=== PATIENT | female | born 1960 | race Two or more races ===

== ENCOUNTER 2017-12-21 10:58 | Emergency (ER) | payer BC ==
[~2017-12-21] VITALS: Ht 170.2 cm; Wt 79.8 kg
[~2017-12-21 10:58] MED LIST: CALCIUM500 M1 PO; FISH OIL500 M1 PO; FLAXSEED OIL1000 M1 PO; METOPROLOL TART25 MG ORAL; METOPROLOL TART25 MG PO; NEXIUM20 MG ORAL; NEXIUM40 MG PO; VITAMIN D1000 UNI1 PO
[2017-12-21 11:12] VITALS: BP 134/83
[2017-12-21] MEDS ORDERED: TESSALON PERLE100 MG ORAL (11:48)
[2017-12-21 12:25] VITALS: BP 134/83
--- NOTE | 2017-12-21 13:53 | Emergency Room Report ---
History of Present Illness General Chief Complaint: Upper Respiratory Illness Source: Patient, Medical Record Present Illness HPI 57-year-old female with hypertension p/w cough for 2 days. Pt states cough is productive, with clear non bloody sputum. Denies fever chills sob . Denies runny nose or myalgias. +sick contacts no recent travel. Patient does not smoke. Allergies: Coded Allergies: No Known Allergies (Unverified , 07/09/12) Patient History Past Medical History: see triage record Past Surgical History: none Pertinent Family History: none Reviewed Nursing Documentation: PMH: Agreed; PSxH: Agreed Nursing Documentation-PMH Past Medical History: No History, Except For Hx Cardiac Problems: Yes - arrthymia Hx Cancer: No Hx Gastrointestinal Problems: Yes Hx Neurological Problems: No Review of Systems All Other Systems: negative except mentioned in HPI Physical Exam Vital Signs Date Time Temp Pulse Resp B/P (MAP) Pulse Ox O2 Delivery O2 Flow Rate FiO2 12/21/17 11:05 98.3 97 18 134/83 99 Room Air 98.2 Sp02 EP Interpretation: reviewed, normal General Appearance: alert, GCS 15, non-toxic, mild distress Head: normocephalic, atraumatic Eyes: bilateral eye normal inspection, bilateral eye PERRL, bilateral eye EOMI ENT: normal ENT inspection, normal pharynx, normal voice, moist mucus membranes Neck: normal inspection, full range of motion, supple Respiratory: normal inspection, lungs clear, normal breath sounds, no respiratory distress, no retraction, no wheezing, speaking full sentences, chest symmetrical Cardiovascular #1: normal inspection, regular rate, rhythm, no edema, normal capillary refill Cardiovascular #2: 2+ radial (R), 2+ radial (L) Gastrointestinal: normal inspection, non tender, soft, non-distended, no guarding Musculoskeletal: normal inspection, back normal, normal range of motion, non- tender Neurologic: normal inspection, alert, oriented x3, responsive, motor strength/ tone normal, sensory intact, normal gait, speech normal Psychiatric: normal inspection, judgement/insight normal, memory normal Skin: normal inspection, normal color, no rash, warm/dry, well hydrated, normal turgor Medical Decision Making Diagnostic Impression: Primary Impression: Upper respiratory infection ER Course 57-year-old female p/w cough for 2 days. DDX: Viral URI vs. pneumonia Plan: CXR ER course: Patient remains nontoxic, not in resp distress. CXR obtained - no acute infiltrate Disposition: Patient is to be discharged home with a prescription of Betsy Cervantes Strict precautions discussed with patient on when to return to the emergency room including hemoptysis, high fevers, chills, SOB, chest pain which may indicate severe illness. Patient is to follow up with their primary care doctor within 5 days. Patient agrees with plan. Please note that this Emergency Department Report was dictated using [employer].data acquisition technician technology software, occasionally this can lead to erroneous entry secondary to interpretation by the dictation equipment Chest X-ray CXR: Ordered: Yes 1 view Indication: Cough EP interpretation: Yes Interpretation: No consolidation, no effusion, no PTX, no acute cardiopulmonary disease Impression: No acute disease Electronically signed by Consuelo Collins MD Last Vital Signs Date Time Temp Pulse Resp B/P (MAP) Pulse Ox O2 Delivery O2 Flow Rate FiO2 12/21/17 12:25 98.2 18 134/83 99 Room Air 98.2 12/21/17 11:12 97 Disposition: HOME, SELF-CARE Condition: Improved Scripts Benzonatate* (POLOSALON URIEL*) 100 Mg Capsule 100 MG ORAL THREE TIMES A DAY, #21 PERLE Prov: Consuelo Collins M.D. 12/21/17 Referrals: WAQAS OCONNELL (PCP) Patient Instructions: Upper Respiratory Infection, Adult Consuelo Collins M.D. Dec 21, 2017 13:53
--- NOTE | 2017-12-21 15:37 | Diagnostic Imaging Report ---
Indication: Shortness of breath Technique: One view of the chest Comparison: none Findings: Lungs and pleural spaces are clear. Heart size is normal Impression: No acute process
== END 2017-12-21 12:26 | disposition home or self-care (01) ==
LOC: EMR 11:20
DX: J06.9 Acute upper respiratory infection, unspecified (principal); I10 Essential (primary) hypertension
CPT/HCPCS: 71045; 99283

== ENCOUNTER 2018-08-15 05:54 | Day surgery (SDC) | payer BC ==
[~2018-08-15] VITALS: Ht 162.6 cm; Wt 80.7 kg
[2018-08-15] VITALS (9 sets, daily range): BP systolic 111–128; BP diastolic 62–87
[~2018-08-15 05:54] MED LIST changes: +TESSALON PERLE100 MG ORAL; +TURMERIC 500 M1 EAC1 PO; +VITAMIN E100 UNI4 PO; +VITAMIN E1000 UNI5 PO
[2018-08-15] MEDS ORDERED: fentaNYL 100 mcg/2 mL IV PRN (06:45)
[2018-08-15] MEDS ORDERED: DiphenhydrAMINE 50mg/ml Inj IVP PRN (06:45)
[2018-08-15] MEDS ORDERED: Midazolam 2mg/2ml Inj IVP PRN (06:45)
[2018-08-15] MEDS ORDERED: Atropine Inj 1mg/10ml Syr IV PRN (06:45)
--- NOTE | 2018-08-15 06:47 | Anethesia Preoperative Eval ---
Anesthesia Pre-op PMH/ROS General Date of Evaluation: Aug 15, 2018 Time of Evaluation: 06:41 Anesthesiologist: murali ASA Score: ASA 3 Mallampati Score Class I : Soft palate, uvula, fauces, pillars visible Class II: Soft palate, uvula, fauces visible Class III: Soft palate, base of uvula visible Class IV: Only hard plate visible Mallampati Classification: Class II Surgeon: billie Diagnosis: gerd, gastritis Surgical Procedure: egd/colonoscopy Anesthesia History: none Social History: smoking - former smoker Family History: no anesthesia problems Allergies: Coded Allergies: No Known Allergies (Unverified , 08/14/18) Medications: see eMAR Patient NPO?: Yes Past Medical History Cardiovascular: Reports: arrhythmia Gastrointestinal/Genitourinary: Reports: GERD, other - kidney stones and cysts , gallbladder disease HEENT: Reports: cataract (L), cataract (R) PSxH Narrative: cholecystectomy Anesthesia Pre-op Phys. Exam Physician Exam Last Vital Signs Date Time Temp Pulse Resp B/P (MAP) Pulse Ox O2 Delivery O2 Flow Rate FiO2 08/15/18 06:35 Room Air 08/15/18 06:33 97.8 76 18 127/68 99 Constitutional: NAD Neurologic: CN 2-12 intact Cardiovascular: RRR Respiratory: CTA Gastrointestinal: S/NT/ND Airway Exam Mallampati Score: Class II MO: full Neck: supple TMD: 2fb ROM: full Anesthesia Pre-op A/P Risk Assessment & Plan Assessment: asa3 Plan: mac Status Change Before Surgery: No Pre-Antibiotics Drug: Wilma Joshi MD Aug 15, 2018 06:46
[2018-08-15] MEDS ORDERED: Lidocaine 1% MPF 10mg/ml 5ml ONE (07:00)
[2018-08-15] MEDS ORDERED: LR 1000ml 1,000 ML IVLG SCH (07:00)
[2018-08-15] MEDS ORDERED: LR 1000ml ONE (07:00)
[2018-08-15] MEDS ORDERED: Propofol 200mg/20ml IV ONE (07:00)
--- NOTE | 2018-08-15 07:16 | Pre-Procedure Note/Attestation ---
Pre-Procedure Note/Attestation Complete Prior to Procedure Planned Procedure: not applicable Procedure Narrative: esophagogastroduodenoscopy colon Indications for Procedure Pre-Operative Diagnosis: abd pain,h/o polyps Attestation I attest that I discussed the nature of the procedure; its benefits; risks and complications; and alternatives (and the risks and benefits of such alternatives ), prior to the procedure, with the patient (or the patient's legal office services representative). I attest that, if there was a reasonable possibility of needing a blood transfusion, the patient (or the patient's legal office services representative) was given the [facility] standardized written summary, pursuant to the [place] Blood Safety Act ([place] Health and Safety Code # 1645, as amended). I attest that I re-evaluated the patient just prior to the surgery and that there has been no change in the patient's H&P, except as documented below: Paulo Amado MD Aug 15, 2018 07:16
--- NOTE | 2018-08-15 07:17 | Short Stay Surgery H&P ---
History of Present Illness History of Present Illness Chief Complaint abd pain , h/o polyps on colonoscopy 3 years ago HPI Shante Guidry is a 58 year old female who was admitted on for Abdominal Pain & Polyps Patient History Allergies: Coded Allergies: No Known Allergies (Unverified , 08/14/18) Medication History Scheduled Calcium Carbonate (Calcium), 500 MG PO DAILY, (Reported) Cholecalciferol (Vitamin D3)* (Vitamin D*), 1,000 UNIT PO DAILY, (Reported) Esomeprazole Magnesium (Nexium), 40 MG PO DAILY, (Reported) Flaxseed Oil (Flaxseed Oil), 1,000 MG PO DAILY, (Reported) Metoprolol Tartrate* (Metoprolol Tartrate*), 12.5 MG ORAL BID, (Reported) Turmeric/Turmeric Root Extract (Turmeric 500 mg Capsule), 1 EACH PO DAILY, ( Reported) Vitamin E (Dl,Tocopheryl Acet) (Vitamin E), 180 MG PO DAILY, (Reported) Miscellaneous Medications [place]-3 Fatty Acids (Fish Oil), 500 MG PO, (Reported) Discontinued Medications Benzonatate* (Tessalon Perle*), 100 MG ORAL THREE TIMES A DAY Discontinued Reason: Pt stopped taking med Esomeprazole Magnesium (Nexium), 20 MG ORAL DAILY, (Reported) Discontinued Reason: Pt stopped taking med Metoprolol Tartrate* (Metoprolol Tartrate*), 10 MG PO DAILY, (Reported) Discontinued Reason: Pt stopped taking med Physical Exam Vital Signs Last Vital Signs Date Time Temp Pulse Resp B/P (MAP) Pulse Ox O2 Delivery O2 Flow Rate FiO2 08/15/18 06:35 Room Air 08/15/18 06:33 97.8 76 18 127/68 99 Plan Attestation Are the patient's medical conditions optimized for surgery? Paulo Amado MD Aug 15, 2018 07:17
--- NOTE | 2018-08-15 07:20 | Short Stay Surgery H&P ---
History of Present Illness History of Present Illness Chief Complaint abd pain, h/o polyp 3 years ago. See typed H&P HPI Shante Guidry is a 58 year old female who was admitted on for Abdominal Pain & Polyps Patient History Allergies: Coded Allergies: No Known Allergies (Unverified , 08/14/18) Medication History Scheduled Calcium Carbonate (Calcium), 500 MG PO DAILY, (Reported) Cholecalciferol (Vitamin D3)* (Vitamin D*), 1,000 UNIT PO DAILY, (Reported) Esomeprazole Magnesium (Nexium), 40 MG PO DAILY, (Reported) Flaxseed Oil (Flaxseed Oil), 1,000 MG PO DAILY, (Reported) Metoprolol Tartrate* (Metoprolol Tartrate*), 12.5 MG ORAL BID, (Reported) Turmeric/Turmeric Root Extract (Turmeric 500 mg Capsule), 1 EACH PO DAILY, ( Reported) Vitamin E (Dl,Tocopheryl Acet) (Vitamin E), 180 MG PO DAILY, (Reported) Miscellaneous Medications [place]-3 Fatty Acids (Fish Oil), 500 MG PO, (Reported) Discontinued Medications Benzonatate* (Tessalon Perle*), 100 MG ORAL THREE TIMES A DAY Discontinued Reason: Pt stopped taking med Esomeprazole Magnesium (Nexium), 20 MG ORAL DAILY, (Reported) Discontinued Reason: Pt stopped taking med Metoprolol Tartrate* (Metoprolol Tartrate*), 10 MG PO DAILY, (Reported) Discontinued Reason: Pt stopped taking med Physical Exam Vital Signs Last Vital Signs Date Time Temp Pulse Resp B/P (MAP) Pulse Ox O2 Delivery O2 Flow Rate FiO2 08/15/18 06:35 Room Air 08/15/18 06:33 97.8 76 18 127/68 99 Plan Attestation Are the patient's medical conditions optimized for surgery? Paulo Amado MD Aug 15, 2018 07:20
--- NOTE | 2018-08-15 08:07 | Immediate Post-Op Evaluation ---
Immediate Post-Op Evalulation Immediate Post-Op Evalulation Procedure: egd/colonoscopy/bx Date of Evaluation: Aug 15, 2018 Time of Evaluation: 08:09 IV Fluids: 650ml lr Blood Products: none Estimated Blood Loss: negligible Blood Pressure Systolic: 111 Blood Pressure Diastolic: 82 Pulse Rate: 82 Respiratory Rate: 18 O2 Sat by Pulse Oximetry: 100 Temperature (Fahrenheit): 97.3 Pain Score (1-10): 0 Nausea: No Vomiting: No Complications none Patient Status: awake, reacts, patent Hydration Status: adequate Drug: Wilma Joshi MD Aug 15, 2018 08:07
--- NOTE | 2018-08-15 08:37 | Endoscopy Procedure Note ---
Endoscopy Procedure Note General Indication for Procedure: abd pain, h/o polyps Procedures Performed: EGD, colonoscopy Operative Findings/Diagnosis: HH, gastric polyps, possible procitis, ascending dim colon polyp,tics Specimen: yes Pt Tolerated Procedure Well: Yes Estimated Blood Loss: none Anesthesia Anesthesiologist: timothy armendariz Anesthesia: MAC Medications Medication Given: see anesthesia record Inserted Devices Implant(s) used?: No GI Core Measures 50 yrs or older w/o bx or poly: Not Applicable 10yrs. F/U not recommended: Not Applicable If not recommended, why?: Paulo Amado MD Aug 15, 2018 08:37
--- NOTE | 2018-08-15 08:39 | Brief Operative Note ---
Immediate Post Operative Note Operative Note Chief Complaint: abd pain, h/o polyp Pre-op Diagnosis: abd pain,h/o polyps Procedure: esophagogastroduodenoscopy/bx, colon/bx. Post-op Diagnosis: HH, gastric polyps, possible procitis, ascending dim colon polyp,tics Surgeon: billie Anesthesiologist: michael Scott Anesthesia: MAC Specimen: yes Complications: none Condition: stable Fluids: recorded Estimated Blood Loss: none Drains: hemovac Implant(s) used?: No Paulo Amado MD Aug 15, 2018 08:39
--- NOTE | 2018-08-15 10:02 | 48 Hour Post Anesthesia Eval ---
Post Anesthesia Evaluation Procedure: egd/colonoscopy/bx Date of Evaluation: Aug 15, 2018 Time of Evaluation: 08:11 Blood Pressure Systolic: 122 0: 87 Pulse Rate: 72 Respiratory Rate: 18 Temperature (Fahrenheit): 97.3 O2 Sat by Pulse Oximetry: 100 Airway: patent Nausea: No Vomiting: No Pain Intensity: 0 Hydration Status: adequate Cardiopulmonary Status: stable Mental Status/LOC: patient returned to baseline Post-Anesthesia Complications: none Follow-up care needed: N/A Wilma Dupree MD Aug 15, 2018 10:02
--- NOTE | 2018-08-15 20:45 | Procedure Note ---
DATE OF PROCEDURE: 08/15/2018 PROCEDURE: Upper capsule endoscopy with biopsy as well as colonoscopy with biopsy. SURGEON: Paulo Amado M.D. ANESTHESIA: Please see the separate anesthesiologist notes for details. PRE-ENDOSCOPIC DIAGNOSES: 1. Abdominal pain. 2. History of colonic polyps. POST-ENDOSCOPIC DIAGNOSES: 1. A 3 cm hiatal hernia. 2. Incidental gastric polyps in the fundus, which were likely benign, status post biopsy. 3. Status post random biopsy of the antrum and duodenum as well as the colon. 4. Mild sigmoid diverticulosis. 5. Diminutive polyp in the ascending colon, status post biopsy and removal. 6. Mild erythema in the rectum possibly due to preparation artifact versus proctitis. DESCRIPTION OF PROCEDURE: The procedure, its risks, indications, alternatives, and possible complications were explained to the patient and an informed consent was obtained. A diagnostic upper endoscope was introduced through the oropharynx and advanced to the duodenum. The endoscope was then gradually withdrawn and the mucosa was examined carefully. Examination of the upper gastric mucosa revealed an incidental 3 cm hiatal hernia. On examination of the stomach, there were multiple diminutive polyps, which appeared to be benign fundic gland polyps. These were biopsied and sent in the same bottle for pathology. Random biopsies of the antrum and the duodenum were also sent for pathology for review. The endoscope was removed. Then, the colonoscope was introduced in the rectum and advanced to the terminal ileum. The terminal ileal mucosa was examined and was normal. In the ascending colon, there was a diminutive polyp, which was biopsied and removed. Random biopsies of the right colon and left colon were sent to pathology. Mild colonic diverticulosis was seen in the sigmoid colon. In the rectum, there was some degree of erythema and this area was biopsied separately to rule out any microscopic inflammation. The colonoscope was removed. The patient was sent to recovery in good condition. COMPLICATIONS: None. RECOMMENDATIONS: 1. Follow up biopsy results. 2. High-fiber diet. 3. Reflux precautions. 4. Outpatient followup. Thank you for asking me to participate in the care of this patient. Paulo Amado M.D. DR: HILARIA JOB#: [id number] CC: Jie Taylor
== END 2018-08-15 09:05 | disposition home or self-care (01) ==
LOC: GAS 05:54
DX: R10.9 Unspecified abdominal pain (principal); K44.9 Diaphragmatic hernia without obstruction or gangrene; K31.7 Polyp of stomach and duodenum; K57.90 Diverticulosis of intestine, part unspecified, without perforation or abscess without bleeding; K63.5 Polyp of colon; K29.50 Unspecified chronic gastritis without bleeding; D12.2 Benign neoplasm of ascending colon; K63.89 Other specified diseases of intestine; K21.9 Gastro-esophageal reflux disease without esophagitis; Z90.49 Acquired absence of other specified parts of digestive tract; Z87.891 Personal history of nicotine dependence
CPT/HCPCS: 43239; 45380; J2704; 94003; 94150

== ENCOUNTER → 2019-10-31 | Outpatient (CLI) | payer BC ==
--- NOTE | 2019-10-31 15:47 | Diagnostic Imaging Report ---
INDICATION: Knee Pain COMPARISON: None 3 views of the left knee were obtained. FINDINGS: No acute fracture, malalignment, or joint effusion are identified. Impression: Negative for acute injury
== END | disposition home or self-care (01) ==
LOC: RAD 11:39
DX: M25.562 Pain in left knee (principal)